=== PATIENT | male | born 1935 | race Caucasian/White ===

== ENCOUNTER 2018-03-04 07:16 | Day surgery (SDC) | payer MEDICARE ==
[2018-03-04] MEDS ORDERED: NACL 0.9% 500 ML 500 ML IV SCH (08:00)
[2018-03-04 08:41] LABS: Hematocrit 49.2 % (35.5-45.6); Hemoglobin 16.5 gm/dl (11.8-15.2); Mean Corpuscular HGB Conc 34 % (32-34); Mean Corpuscular Hemoglobin 32 pg (28-32); Mean Corpuscular Volume 95 fl (84-94); Platelet Count 160 K/mm3 (140-440); Red Blood Count 5.16 M/mm3 (3.65-5.03); Red Cell Distribution Width 14.7 % (13.2-15.2)
[2018-03-04 08:47] LABS: BUN/Creatinine Ratio 20; Blood Urea Nitrogen 14 mg/dL (9-20); Calcium 9.6 mg/dL (8.4-10.2); Hemolysis Index 16
[2018-03-04 08:48] LABS: INR 1.03 (0.87-1.13); Partial Thromboplastin Time 27.7 Sec. (24.2-36.6)
[2018-03-04] MEDS ORDERED: HEPARIN 10,000 UNITS/10 ML ONE (09:38)
[2018-03-04] MEDS ORDERED: SUBLIMAZE ONE (09:38)
[2018-03-04] MEDS ORDERED: VERSED ONE (09:38)
[2018-03-04] MEDS ORDERED: HEPARIN/NS 5000 UNIT/500ML(CATH LAB) 1,000 ML IR ONE (09:38)
[2018-03-04] MEDS ORDERED: CALAN ONE (09:38)
[2018-03-04] MEDS ORDERED: XYLOCAINE 2% INFILTRATI ONE (09:39)
[2018-03-04] MEDS ORDERED: NITROGLYCERIN SYRINGE 3 ML ONE (09:39)
[2018-03-04] MEDS ORDERED: ULTRAM PO PRN (11:00)
[2018-03-04 11:02] LABS: Large Platelets Few; Platelet Estimate Cons; RBC Morphology Normal; Total Cells Counted 100
--- NOTE | 2018-03-04 11:42 | Cardiac Catherization Report ---
INDICATION FOR PROCEDURE: An 82-year-old gentleman with history of hypertension, history of chronic smoking, hyperlipidemia, severe arthritis, limiting his activities, was noted to have a medium-sized reversible apical defect suggestive of moderate ischemia. Normal left ventricular function was noted. Hence the patient is scheduled for cardiac catheterization for definitive diagnosis and treatment. The patient denies any anginal pains at this point. However, his activities are very limited. The patient is aware of the procedure, potential complications, and alternatives of therapy available. The patient was brought to the catheterization laboratory in a fasting condition. The right wrist area and forearm thoroughly cleansed with Betadine solution. Sterile drapes were applied. Local anesthesia was given in the right wrist area. Right radial artery puncture was made using 21-gauge arterial puncture needle. Subsequently, 5-Korean sheath was introduced. A 5-Korean multipurpose catheter was used to obtain the left ventriculogram, done in MATUTE projection using hand injection. Subsequently, 5-Korean TIG catheter was used to obtain the angiograms of the left and right coronary artery in multiple views. At the end of the procedure, catheter, and sheath were removed. Good hemostasis was achieved with pressure bandage. The patient was evaluated prior to the procedure for appropriateness for moderate sedation. He was felt to be a candidate for moderate sedation and received IV Versed and fentanyl starting at 0, at 9:59 a.m. and was monitored hemodynamically along with EKG and pulse oximetry up to 10:15 a.m. The patient tolerated the procedure well. No untoward complications were noted. The patient received 5 mg of intra-arterial verapamil and 3000 units of intravenous heparin. The following findings were noted. HEMODYNAMICS: 1. Opening aortic pressure 145/55, left ventricular pressure 145/12, no gradient across the aortic valve. Estimated ejection fraction is 60%. 2. Left ventriculogram done in MATUTE projection showed normal-sized left ventricle with normal contractility. End-diastolic and systolic volumes are normal. Mitral regurgitation could not be evaluated because of limited amount of dye injected. 3. Coronary arteries showed diffuse moderate calcification in the left main, LAD, and circumflex areas. The left main without significant disease. LAD in the proximal part shows 50-60% smooth lesion. From this area, there is a fairly large diagonal branch arises which shows 60-70% ostial proximal lesion. All these lesions are calcific. Mid and distal LAD, which curves around the apex without significant disease. Circumflex artery shows 40% smooth lesion in the distal part up to the origin of the marginal branch. This lesion is smooth. Otherwise, only mild irregularities were noted in the circumflex artery. 4. Right coronary artery dominant artery shows 50% smooth lesion in the proximal part. Mid and distal RCA along with PDA and LV branch without significant disease. Collaterals none. FINAL IMPRESSION: Normal-sized left ventricle with moderate disease in the proximal left anterior descending, which involves the origin of a fairly large diagonal branch, which has 60-70% ostial proximal lesion. Circumflex artery showed 40% moderate disease along with a dominant right coronary artery showing 50% smooth proximal area. The patient at this time has moderate disease involving all the 3 vessels along with diffuse calcifications. Considering his clinical picture and above angiographic pictures, the patient was recommended medical therapy and continued risk factor modification. The patient denies any symptoms suggestive of angina at this time. The patient tolerated the procedure well. No untoward complications were noted. Hemostasis was achieved with radial band. Findings were explained to the patient. JOB# [id number] PILO/MEDHAT DUMONT
--- NOTE | 2018-03-04 12:05 | Short Stay Summary ---
Short Stay Documentation Date of service: 03/04/18 - History H&P: obtained from office - Allergies and Medications Current Medications: Allergies No Known Allergies Allergy (Verified 10/20/13 14:35) Home Medications Medication Instructions Recorded Confirmed Last Taken Type Losartan [Cozaar] 100 mg PO QDAY #30 tablet 06/13/13 03/04/18 03/04/18 06:00 Rx 100mg Metoprolol Xl [Metoprolol 25 mg PO QDAY #30 tablet 06/13/13 03/04/18 03/04/18 Rx SUCCINATE ER TAB] 25mg amLODIPine [Norvasc] 10 mg PO QDAY #30 tablet 06/13/13 03/04/18 03/04/18 Rx 0600 hydrALAZINE [Apresoline TAB] 25 mg PO Q8HR #90 tablet 08/05/13 03/04/18 06:00 Rx 25mg Aspirin EC [Aspirin Enteric Coated 81 mg PO DAILY 03/04/18 03/04/18 03/04/18 06: 00 History TAB] 81mg Active Medications Sodium Chloride (Nacl 0.9% 500 Ml) 500 mls @ 50 mls/hr IV DIRECT TRAVIS Stop: 03/04/18 17:59 Last Admin: 03/04/18 08:55 Dose: 50 mls/hr Tramadol HCl (Ultram) 50 mg PO Q4H PRN PRN Reason: Pain, Moderate (4-6) - Brief post op/procedure progress note Date of procedure: 03/04/18 Pre-op diagnosis: abnormal stress test Post-op diagnosis: other (nonobstructive CAD) Procedure: [facility] - see cath report Anesthesia: local Estimated blood loss: none Condition: stable - Disposition Condition at discharge: Stable Disposition: [id number] TO HOME OR SELFCARE - Discharge Diagnoses (1) CAD (coronary artery disease) Status: Chronic (2) Hyperlipidemia Status: Chronic (3) Tobacco use Status: Chronic (4) Hypertension Status: Chronic Short Stay Discharge Plan Activity: advance as tolerated Diet: low fat, low cholesterol, low salt Wound: open to air, keep clean and dry, per your surgeon's advice Follow up with: ALEXIS AZEVEDO MD [Primary Care Provider] - 7 Days CLIFTON KELLY MD [Staff Physician] - 7 Days
[2018-03-04 12:38] VITALS: BP 174/74
== END 2018-03-04 13:30 | disposition home or self-care (01) ==
LOC: CATHLABREC 07:16
PROVIDERS: ATTEND Internal Medicine
DX: I25.10 Atherosclerotic heart disease of native coronary artery without angina pectoris (principal); M19.90 Unspecified osteoarthritis, unspecified site; I10 Essential (primary) hypertension; E78.5 Hyperlipidemia, unspecified; Z79.82 Long term (current) use of aspirin; Z79.01 Long term (current) use of anticoagulants; Z79.899 Other long term (current) drug therapy; Z72.89 Other problems related to lifestyle; Z98.42 Cataract extraction status, left eye; Z98.41 Cataract extraction status, right eye; Z90.49 Acquired absence of other specified parts of digestive tract; Z87.891 Personal history of nicotine dependence; Z85.51 Personal history of malignant neoplasm of bladder; Z98.890 Other specified postprocedural states; Z80.42 Family history of malignant neoplasm of prostate
CPT/HCPCS: 36415; 80048; 85007; 85025; 85610; 85730; 93005; 93010; 93458; 99156; C1887; C1894; J1644; J2250; J3010; J7040; Q9967